=== PATIENT | male | born 1945 | race Caucasian/White ===

== ENCOUNTER 2019-04-16 12:18 | Outpatient (CLI) | payer MEDICARE, OTHER ==
--- NOTE | 2019-04-16 13:12 | RAD ---
PA AND LATERAL CHEST: HISTORY: Cough. FINDINGS: The heart size is normal. The lungs are expanded without lobar consolidation, pneumothoraces or pleur al effusions. There are degenerative changes in the spine. IMPRESSION: No acute process. POS: [facility]
== END 2019-04-16 12:19 | disposition home or self-care (01) ==
LOC: NAV SJFMSP 12:18 → NAV RAD 12:19
PROVIDERS: ATTEND Nurse Practitioner Adult Health
DX: R05 Cough (principal)
CPT/HCPCS: 71046